=== PATIENT | male | born 1950 | race Caucasian/White ===

== ENCOUNTER → 2020-03-27 | Outpatient (CLI) | payer OTHER | LOC: LAB 08:43 | PROVIDERS: ATTEND Internal Medicine Cardiovascular Disease | DX: Z01.812 Encounter for preprocedural laboratory examination (principal); Z20.822 Contact with and (suspected) exposure to COVID-19 ==

== ENCOUNTER 2020-03-31 06:25 | Observation (INO) | payer OTHER ==
[2020-03-31] VITALS (13 sets, daily range): BP systolic 100–121; BP diastolic 49–77
[~2020-03-31] VITALS: Ht 177.8 cm; Wt 94.5 kg
--- NOTE | ~2020-03-31 | P ---
[facility] [place] [address] PROCEDURE REPORT Name: CLAUDETTE BENSON Room #: 201-P [facility] MNithya#: [id number] Admission: 03/31/20 Attend Phys: Danie Bethea MD Discharge: Date of : 54 Report #: [id number] THIS REPORT FOR: cc: Stevie Alvarez MD, Bradley MD Couchonnal,Danie Novoa MD ~ DATE OF SERVICE: 03/31/2020 PREOPERATIVE DIAGNOSES: 1. Ventricular tachycardia. 2. Ischemic cardiomyopathy. 3. Coronary artery disease, status post CABG. HISTORY: The patient is a 69-year-old male with history of coronary artery disease, status post ID with an EF of 20%, status post [employer] ICD back in 2013. He has had multiple recent hospitalizations for recurrent monomorphic ventricular tachycardia. Tachycardia cycle length 300 milliseconds. He is here for ischemic VT ablation. PROCEDURE: 1. VT ablation. CPT code 83532. 2. EP with left atrial pacing and recording, CPT code 94522. 3. Intracardiac echo. CPT code 15550. 4. Arterial line placement. CPT code 04932. 5. Preprocedural ICD reprogramming, CPT code 51650. 6. Post-procedure ICD reprogramming, CPT code 99106. ANESTHESIA: The patient underwent general anesthesia with no anesthesia-related complications. DESCRIPTION OF PROCEDURE: The patient underwent informed consent. We discussed the details of the procedure including the risks, which include, but are not limited to, bleeding, infection, vascular damage, cardiac perforation, stroke, ID, damage to the [place] conduction system. He understood these risks and is willing to proceed. The patient was brought to the EP laboratory in a fasting and sedated state, prepped and draped in sterile fashion. Next, I reprogrammed his ICD. I turned off his therapies and I programmed his device to the AAI mode to prevent ventricular pacing. He does have a long VT interval with a left bundle branch block. Consideration of a Bi-V in the future is warranted. Next, I obtained access to the right femoral artery x 1 and the right femoral vein x 3. In the right femoral artery, I placed an 8-[place] short sheath; and in the right femoral vein, I placed a 9-[place] short sheath, 7-[place] short sheath, and a 6-[place] short sheath. Next, under fluoroscopy, I placed a decapolar catheter [facility] [address] [place] [address] PROCEDURE REPORT Name: CLAUDETTE BENSON Room #: 201-P [facility] Ina Ochoa#: [id number] Admission: 03/31/20 Attend Phys: Danie Bethea MD Discharge: Date of : 54 Report #: [id number] into the coronary sinus, which I utilized for left atrial pacing and recording. I placed a quadripolar catheter in the right ventricle and I placed an ICE catheter into the right atrium. Using intracardiac ultrasound, I created a detailed 3D geometry of the left ventricle, the aortic valve, and the ascending aorta. At baseline, the patient had low ejection fraction of around 20% with evidence of an extensive anterior ID. I also tagged the two papillary muscles. At the end of the case, intracardiac ultrasound was again utilized and I verified there was no evidence of a pericardial effusion. Next, the patient was systemically heparinized and a PentaRay catheter was placed into the left ventricle. I spent approximately an hour mapping the extensive anterior apical scar. A detailed voltage map and a detailed activation map of the ventricular scar and areas of slow conduction were also defined. Next, a SmartTouch ThermoCool ablation catheter was taken retrograde into the left ventricle and we started ablating the extensive scar focusing mostly along the anterior septal region of the scar tissue, which showed highly fractionated and delayed potentials and extensive areas of slow conduction. This area was homogenized and I started along the basal aspect of the septum and took this down apically and then performed more additional ablation along the mid areas of the scar where there were areas of slow conduction. Most of the mid region of the scar was without any significant voltage other than some small areas of slow conduction. Additional ablation was performed along the more lateral region of the scar, which connected with areas of normal tissue. This area was also extensively homogenized. Post-ablation, we had taken care of a significant amount of abnormal scar tissue throughout the border zones of the myocardial infarction and the procedure was concluded. Using intracardiac ultrasound, I verified there was no evidence of pericardial effusion. The defibrillator was interrogated and found to be functioning normally and his therapies were enabled. The patient received systemic protamine and once the ACT was within an acceptable range, catheters and sheaths were pulled and hemostasis was obtained. The patient awoke neurologically and hemodynamically intact. No complications and no significant bleeding. CONCLUSIONS: 1. Successful ischemic VT ablation with extensive substrate modification. 2. Successful ICD reprogramming. By: [id number] Danie Bethea MD /nt
[2020-03-31 07:30] LABS: ABSOLUTE NEUTROPHILS 4.2 thou/uL (1.4-8.2); EOSINOPHILS 3.7 % (0.0-3.0); HEMATOCRIT 42.4 % (42.0-52.0); HEMOGLOBIN 14.1 gm/dL (14.0-18.0); LYMPHOCYTES 18.3 % (24.0-44.0); MCH 30.7 pg (26.0-34.0); MCHC 33.2 g/dL (28.0-37.0); MCV 92.5 fL (80.0-100.0); MONOCYTES 10.1 % (1.0-8.0); PLATELET COUNT 229 thou/uL (150-400); POLYS 66.9 % (36.0-66.0); RBC 4.59 mil/uL (4.50-6.00); RDW 15.1 % (10.5-14.5); WBC 6.3 thou/uL (4.0-11.0)
[2020-03-31 07:40] LABS: APTT 27.4 Seconds (24.5-32.8); PROTIME 10.1 Seconds (9.3-11.4)
[2020-03-31] MEDS ORDERED: AMIODARONE HCL400 MG PO (07:52)
[2020-03-31] MEDS ORDERED: ASA81BEC PO (07:52)
[2020-03-31] MEDS ORDERED: LIPITOR80 MG PO (07:53)
[2020-03-31 07:57] LABS: CALCIUM 9.5 mg/dL (8.5-10.1); CREATININE 1.8 mg/dL (0.7-1.3); POTASSIUM 4.8 mmol/L (3.5-5.1)
[2020-03-31] MEDS ORDERED: PLAVIX 75 MG TA75 MG PO (07:57)
[2020-03-31] MEDS ORDERED: LASIX 40 MG TAB40 MG PO (07:57)
[2020-03-31] MEDS ORDERED: PREVACID30 MG PO (07:58)
[2020-03-31] MEDS ORDERED: TOPROL XL25 MG PO (07:59)
[2020-03-31] MEDS ORDERED: KLOR-CON M2020 MEQ PO (07:59)
[2020-03-31] MEDS ORDERED: RANEXA500 MG PO (08:00)
[2020-03-31] MEDS ORDERED: ENTRESTO 49 MG1 EACH PO (08:01)
[2020-03-31 08:03] LABS: ALBUMIN 3.4 g/dL (3.4-5.0); TOTAL BILIRUBIN 0.7 mg/dL (0.2-1.0); TOTAL PROTEIN 6.8 g/dL (6.4-8.2)
[2020-03-31] MEDS ORDERED: XARELTO20 MG PO (15:44)
--- NOTE | 2020-04-01 03:35 | NUR ---
Assumed pt care at 1900. Pt is alert and oriented. No sign of distress noted. Pt denies pain. Right groin site intact, no sign of bleeding, or hematoma. Pt educated on fall. Assessment completed and documented. Scheduled meds administered to. Tolerated po intake tolerated. No acute events overnight. Continue to monitor patient. Discharge pending. No further needs at this time.
[2020-04-01 04:03] VITALS: BP 102/56
[2020-04-01 07:05] VITALS: BP 110/67
[2020-04-01] MEDS ORDERED: SPIRONOLACTONE25 MG PO (09:10)
[2020-04-01 11:15] VITALS: BP 116/62
[2020-04-01 11:33] VITALS: BP 110/67
--- NOTE | 2020-04-01 13:00 | NUR ---
PT IS ALERT AND ORIENTED X4, PLEASANT. DR RODRIGUEZ CONSULTED. PT IS UP AD GABRI[facility] TO TOILET[facility] DISCHARGTE EDUCATION CONDUCTED ON NEW MEDICATIONS, CATH SITE POST CARE, AND FOLLOW UP APPOINTMENT. PT HAS NO CONCERNS AT THIS TIME. PT DISCHARGE TO HOME WITH .
--- NOTE | 2020-04-01 13:02 | NUR ---
PT WILL POSS DC TODAY TO HOME POSS NEED FOR HOME O2 BUT PT IS REFUSING HOME O2 EVEN IF NEEDED. IF HE AGREES TO HOME O2 NURSE TO CALL RESPIRATORY THERAPIST TO SET UP HOME O2 WITH PROVIDER PLUS.
== END 2020-04-01 13:07 | disposition home or self-care (01) ==
LOC: CATH 06:25 → 2N 13:34
PROVIDERS: ADMIT Internal Medicine Cardiovascular Disease; ATTEND Internal Medicine Cardiovascular Disease
DX: I47.2 Ventricular tachycardia (principal); I25.10 Atherosclerotic heart disease of native coronary artery without angina pectoris; I25.5 Ischemic cardiomyopathy; I48.0 Paroxysmal atrial fibrillation; J44.9 Chronic obstructive pulmonary disease, unspecified; I73.9 Peripheral vascular disease, unspecified; I10 Essential (primary) hypertension; M19.90 Unspecified osteoarthritis, unspecified site; F17.200 Nicotine dependence, unspecified, uncomplicated; Z79.82 Long term (current) use of aspirin; Z79.899 Other long term (current) drug therapy; Z95.1 Presence of aortocoronary bypass graft
CPT/HCPCS: 62110; 62900; 70005